=== PATIENT | male | born 2005 | race Hispanic/Latino ===

== ENCOUNTER 2024-08-03 18:32 | Emergency (ER) | payer OTHER ==
[2024-08-03] MEDS ORDERED: FAMOTIDINE 20 MG/2 ML VIAL IV ONE (19:23)
[2024-08-03 19:34] LABS: Absolute Basophils 0.1 K/uL (0-0.5); Absolute Eosinophils 0.3 K/uL (0-0.5); Absolute Lymphocytes (CBC) 3.4 K/uL (0.7-4.9); Absolute Monocytes 0.5 K/uL (0.1-1.3); Absolute Neutrophil 3.8 K/uL (1.8-8.0); Basophils % 1.1 % (0-1.3); Eosinophils % 4.1 % (0-4.4); Hematocrit 46.4 % (39.6-49.0); Hemoglobin 15.9 g/dL (13.6-17.9); Lymphocytes % 41.9 % (15.3-44.8); MCH 30.5 pg (27.0-35.0); MCHC 34.2 g/dL (32.0-36.0); MCV 89.1 fL (80-100); MPV 7.2 fL (7.6-11.3); Monocytes % 6.1 % (3.3-12.3); Neutrophils % 46.8 % (41.7-73.7); Nucleated Red Blood Cells % 0.1 % (0-0); Platelets 310 thou/uL (152-406); Red Cell Distribution Width 12.9 % (12.1-15.2)
[2024-08-03 19:52] LABS: Albumin 4.1 g/dL (3.4-5.0); Albumin/Globulin Ratio 1.1 (1.1-1.8); Anion Gap 8.3 mEq/L (5.0-15.0); Bilirubin Total 0.7 mg/dL (0.2-1.0); Globulin 3.8 g/dL (2.3-3.5); Potassium 4.3 mEq/L (3.5-5.1); Protein, Total 7.9 g/dL (6.4-8.2)
--- NOTE | 2024-08-03 20:35 | RAD REPORT ---
EXAMINATION: CT Abdomen Pelvis W Contrast CLINICAL INDICATION: Male, 18 years old. ABD PAIN TECHNIQUE: CT abdomen and pelvis was performed, after the administration of IV contrast, as per [facility]. Axial, sagittal and coronal reconstructions were obtained. One or more of the following dose reduction techniques were used: Automated exposure control, adjustment of the mA and k V according to patient size, and iterative reconstruction. Unless otherwise specified, incidental findings do not require dedicated imaging follow-up. COMPARISON: No prior exam. FINDINGS: LOWER CHEST: The visualized lung bases are clear. LIVER: Normal in size and contour. No focal lesion. BILIARY SYSTEM: No suspicious abnormalities. SPLEEN: Normal size. No focal lesion. PANCREAS: No mass, ductal dilation, or mary-pancreatic fluid. ADRENALS: Normal; no mass. KIDNEYS: Normal size and contour. No hydronephrosis. URINARY BLADDER: Unremarkable. GASTROINTESTINAL TRACT: No evidence of free air, significant intra-abdominal free fluid, bowel obstru ction or abscess. APPENDIX: Normal appendix. LYMPH NODES: No lymphadenopathy. MUSCULOSKELETAL: No acute or suspicious osseous abnormality. ADDITIONAL FINDINGS: None. IMPRESSION: No acute or concerning abnormalities seen in the abdomen or pelvis.
--- NOTE | 2024-08-03 21:24 | ER ---
Nurse's Notes [facility] Name: Dagoberto Rahman Age: 18 yrs Sex: Male : 2005 Arrival Date: 08/03/2024 Time: 18:32 Bed 20 Private MD: Diagnosis: Upper abdominal pain, unspecified Presentation: 08/03 18:59 Chief complaint: Patient states: x4 days epigastric area bloating and discomfort, hurts ll1 to touch. Will mostly go away when I lay flat on my back. Feeling fatigued, very sleep. Girlfriend was recently diagnosed with mono. Coronavirus screen: Client denies travel out of the [place] in the last 14 days. Ebola Screen: Patient negative for fever greater than or equal to 101.5 degrees Fahrenheit, and additional compatible Ebola Virus Disease symptoms Patient denies exposure to infectious person. Patient denies travel to an Ebola-affected area in the 21 days before illness onset. No symptoms or risks identified at this time. Initial Sepsis Screen: Does the patient meet any 2 criteria? No. Patient's initial sepsis screen is negative. Does the patient have a suspected source of infection? No. Patient's initial sepsis screen is negative. Risk Assessment: Do you want to hurt yourself or someone else? Patient reports no desire to harm self or others. Onset of symptoms was July 30, 2024. 18:59 Method Of Arrival: Ambulatory ll1 18:59 Acuity: JOELLEN 3 ll1 Triage Assessment: 18:59 General: Appears in no apparent distress. Behavior is calm, cooperative. Pain: ll1 Complains of pain in epigastric area Pain currently is 4 out of 10 on a pain scale. EENT: No signs and/or symptoms were reported regarding the EENT system. Neuro: Level of Consciousness is awake, alert, obeys commands, Oriented to person, place, time, situation. Neuro: Reports fatigue x4 days. Cardiovascular: Patient's skin is warm and dry. Respiratory: Airway is patent Respiratory effort is even, unlabored, Respiratory pattern is regular, symmetrical. GI: Abdomen is flat, non-distended, Reports bloating, epigastric pain. : No signs and/or symptoms were reported regarding the genitourinary system. Derm: No signs and/or symptoms reported regarding the dermatologic system. Musculoskeletal: No signs and/or symptoms reported regarding the musculoskeletal system. Historical: - Allergies: 18:58 No Known Allergies; ll1 - PMHx: 18:58 None; ll1 - PSHx: 18:58 None; ll1 - Immunization history:: Flu vaccine is not up to date. - Infectious Disease History:: Denies. - Social history:: Smoking status: Reported history of juuling and/or vaping. Screenin:29 [facility] ED Fall Risk Assessment (Adult) History of falling in the last 3 months, br2 including since admission No falls in past 3 months (0 pts) Confusion or Disorientation No (0 pts) Intoxicated or Sedated No (0 pts) Impaired Gait Yes (1 pt) Mobility Assist Device Used No (0 pt) Altered Elimination No (0 pt) Score/Fall Risk Level 0 - 2 = Low Risk Oriented to surroundings. Abuse screen: Denies threats or abuse. Denies injuries from another. Nutritional screening: No deficits noted. Tuberculosis screening: No symptoms or risk factors identified. Assessment: 19:29 Reassessment: Patient and/or family updated on plan of care and expected duration. Pain br2 level reassessed. Patient is alert, oriented x 3, equal unlabored respirations, skin warm/dry/pink. General: Appears in no apparent distress. comfortable, Behavior is calm, cooperative. Pain: Complains of pain in diaphragm Pain does not radiate. Pain currently is 4 out of 10 on a pain scale. Neuro: Palma Agitation-Sedation Scale (RASS): 0 - Alert and Calm. Neuro: Level of Consciousness is awake, alert, obeys commands, Oriented to person, place, time. Cardiovascular: Capillary refill < 3 seconds. Respiratory: Airway is patent Respiratory effort is even, unlabored, Respiratory pattern is regular, symmetrical. GI: Abdomen is flat, non-distended, Reports epigastric pain, nausea. : No signs and/or symptoms were reported regarding the genitourinary system. EENT: No signs and/or symptoms were reported regarding the EENT system. Derm: No signs and/or symptoms reported regarding the dermatologic system. 20:30 Reassessment: No changes from previously documented assessment. Patient and/or family br2 updated on plan of care and expected duration. Pain level reassessed. Patient is alert, oriented x 3, equal unlabored respirations, skin warm/dry/pink. 21:23 Reassessment: Patient and/or family updated on plan of care and expected duration. Pain br2 level reassessed. Patient is alert, oriented x 3, equal unlabored respirations, skin warm/dry/pink. Patient states feeling better. Vital Signs: 18:57 BP 143 / 78; Pulse 71; Resp 17; Temp 98.1(TE); Pulse Ox 100% on R/A; MAP 95 mmHg; ll1 Weight 97.52 kg; Height 6 ft. 1 in. ; Pain 4/10; 20:51 BP 121 / 64; Pulse 76; Resp 18; Pulse Ox 100% on R/A; br2 21:22 BP 115 / 65; Pulse 74; Resp 18; Pulse Ox 100% on R/A; br2 18:57 Body Mass Index 28.37 (97.52 kg, 185.42 cm) ll1 18:57 Pain Scale: Adult ll1 ED Course: 18:40 Patient arrived in ED. ra3 18:40 Joseph Whelan DO is Attending Physician. ms3 18:59 Arm band placed on right wrist. ll1 19:01 Triage completed. ll1 19:20 Kalina Carrillo, RN is Primary Nurse. br2 19:29 Patient has correct armband on for positive identification. Placed in gown. Bed in low br2 position. Call light in reach. Side rails up X 1. Provided Education on: PLAN OF CARE. 19:29 CBC with Diff Sent. br2 19:29 CMP Sent. br2 19:29 Lipase Sent. br2 19:29 Inserted saline lock: 20 gauge in left antecubital area, using aseptic technique. Blood af3 collected. Flushed with 10 mL NS. 20:13 CT Abd/Pelvis - IV Contrast Only In Process Unspecified. EDMS 21:31 No provider procedures requiring assistance completed. IV discontinued, intact, br2 bleeding controlled, No redness/swelling at site. Pressure dressing applied. Administered Medications: 19:28 Drug: Famotidine IVP 20 mg IVP once; dilute with 10 mL 0.9% NaCl; give over 2 minutes br2 Route: IVP; Site: left antecubital; 20:00 Follow up: Response: No adverse reaction br2 Medication: 21:31 VIS not applicable for this client. br2 Outcome: 21:23 Discharge ordered by . ms3 21:31 Discharged to home ambulatory, br2 21:31 Condition: good 21:31 Discharge instructions given to patient, Instructed on discharge instructions, follow up and referral plans. Demonstrated understanding of instructions, follow-up care, 21:31 Patient left the ED. br2 Signatures: Dispatcher [employer] EDMS Leora Flores, RN RN ll1 Joseph Whelan DO DO ms3 Lilibeth Li ra3 Kalina Carrillo RN RN br2 Maddy Nina 3 Corrections: (The following items were deleted from the chart) 22:07 21:51 Patient left the ED. br2 br2
--- NOTE | 2024-08-03 21:24 | EDPHYS ---
Physician Documentation [facility] Name: Dagoberto Rahman Age: 18 yrs Sex: Male : 2005 Arrival Date: 08/03/2024 Time: 18:32 Bed 20 Private MD: ED Physician Joseph Whelan HPI: 08/03 20:00 This 18 yrs old Male presents to ER via Ambulatory with complaints of Stomach ms3 bloating/pain. 20:00 Dagoberto Rahman is a 18-year-old male who presents to the emergency department for ms3 swelling and discomfort in the upper part of his abdomen. The swelling and pain have been present for about four days. The discomfort is rated as 4 out of 10 in intensity and improves only when lying flat on his back. Dagoberto initially sought care at an urgent care center due to concerns about mononucleosis, as his girlfriend was diagnosed with it. He was tested for mononucleosis, influenza, COVID-19, and strep throat, all of which returned negative results. After receiving negative test results, he resumed normal daily activities, including lifting heavy weights at the gym. The swelling in his abdomen appeared the day following a heavy lifting session. He reports no significant past medical history.. Historical: - Allergies: 18:58 No Known Allergies; ll1 - PMHx: 18:58 None; ll1 - PSHx: 18:58 None; ll1 - Immunization history:: Flu vaccine is not up to date. - Infectious Disease History:: Denies. - Social history:: Smoking status: Reported history of juuling and/or vaping. ROS: 20:00 Constitutional: Negative for fever, and chills. Cardiovascular: Negative for chest ms3 pain, and palpitations. Respiratory: Negative for shortness of breath, cough, wheezing, and pleuritic chest pain, 20:00 MS/Extremity: Negative for injury and deformity, Skin: Negative for injury, rash, and discoloration, 20:00 Abdomen/GI: Positive for abdominal pain, Exam: 20:00 Constitutional: This is a well developed, well nourished patient who is awake, alert, ms3 and in no acute distress. Neck: Trachea midline, no cervical lymphadenopathy. Supple, full range of motion without nuchal rigidity, or vertebral point tenderness. No Meningismus. Chest/axilla: Normal chest wall appearance and motion. Nontender with no deformity. Cardiovascular: Regular rate and rhythm with a normal S1 and S2. No gallops, murmurs, or rubs. Normal PMI, no JVD. No pulse deficits. Respiratory: Lungs have equal breath sounds bilaterally, clear to auscultation and percussion. No rales, rhonchi or wheezes noted. No increased work of breathing, no retractions or nasal flaring. 20:00 Abdomen/GI: Inspection: abdomen appears normal, Bowel sounds: normal, Palpation: mild abdominal tenderness, in the epigastric area, Vital Signs: 18:57 BP 143 / 78; Pulse 71; Resp 17; Temp 98.1(TE); Pulse Ox 100% on R/A; MAP 95 mmHg; ll1 Weight 97.52 kg; Height 6 ft. 1 in. ; Pain 4/10; 20:51 BP 121 / 64; Pulse 76; Resp 18; Pulse Ox 100% on R/A; br2 21:22 BP 115 / 65; Pulse 74; Resp 18; Pulse Ox 100% on R/A; br2 18:57 Body Mass Index 28.37 (97.52 kg, 185.42 cm) ll1 18:57 Pain Scale: Adult ll1 MDM: 19:09 Medical Screening Exam initiated ms3 21:23 Differential diagnosis: bowel obstruction, cholecystitis, Cholelithiasis, gastritis, ms3 gastroesophageal reflux disease, non-specific abd pain, pancreatitis. Data reviewed: vital signs, nurses notes, lab test result(s), radiologic studies, and as a result, I will discharge patient. I considered the following discharge prescriptions or medication management in the emergency department Medications were administered in the Emergency Department. See MAR. Counseling: I had a detailed discussion with the patient and/or guardian regarding the historical points, exam findings, and any diagnostic results supporting the discharge/admit diagnosis, lab results, radiology results, the need for outpatient follow up, to return to the emergency department if symptoms worsen or persist or if there are any questions or concerns that arise at home. Special discussion: Based on the patient's Hx, exam, and Dx evaluation, there is no indication for emergent surgery or inpatient Tx. It is understood by the patient/guardian that if the Sx's persist or worsen they need to return immediately for re-evaluation. ED course: Discussed labs, negative CT with patient. Patient to follow-up with his primary care physician 2 to 3 days. Patient understands and agrees with plan. All questions were answered. Return precautions discussed include vomiting, fevers, worsening symptoms, or any other concerns. On reevaluation patient symptoms improved, patient is alert and oriented x 4, no apparent distress, nontoxic-appearing, speaking full sentences.. 08/03 19:10 Order name: CBC with Diff; Complete Time: 20:00 ms3 08/03 19:10 Order name: CMP; Complete Time: 20:00 ms3 08/03 19:10 Order name: Lipase; Complete Time: 20:00 ms3 08/03 19:10 Order name: CT Abd/Pelvis - IV Contrast Only; Complete Time: 21:16 ms3 08/03 19:10 Order name: IV Saline Lock; Complete Time: 19:29 ms3 08/03 19:10 Order name: Labs collected and sent; Complete Time: 19:29 ms3 Administered Medications: 19:28 Drug: Famotidine IVP 20 mg IVP once; dilute with 10 mL 0.9% NaCl; give over 2 minutes br2 Route: IVP; Site: left antecubital; 20:00 Follow up: Response: No adverse reaction br2 Disposition Summary: 08/03/24 21:23 Discharge Ordered Notes: Location: Home ms3 Condition: Stable ms3 Diagnosis - Upper abdominal pain, unspecified ms3 Followup: ms3 - With: Private Physician - When: 2 - 3 days - Reason: Recheck today's complaints Discharge Instructions: - Discharge Summary Sheet ms3 - Abdominal Pain, Adult ms3 Forms: - Medication Reconciliation Form ms3 - Antibiotic Education ms3 - Prescription Opioid Use ms3 - Patient Portal Instructions ms3 - Leadership Thank You Letter ms3 Prescriptions: - Pepcid 20 mg Oral Tablet - take 1 tablet ORAL route every 12 hours for 10 days; 20 tablet; Refills: 0, ms3 Product Selection Permitted Signatures: Dispatcher [employer] Leora Wallace RN RN ll1 Joseph Whelan DO DO ms3 Kalina Carrillo RN RN br2
[2024-08-03 22:16] VITALS: TEMP 98.1; O2SAT 100
[2024-08-03 22:18] VITALS: BP 115/65
== END 2024-08-03 21:51 | disposition home or self-care (01) ==
LOC: ER 18:32
DX: R10.13 Epigastric pain (principal)
CPT/HCPCS: 85025; 36415; 83690; 80053; 74177; 96374; 99284; Q9967